=== PATIENT | female | born 2005 ===

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

== ENCOUNTER 2025-05-04 15:22 | Emergency (ER) | payer OTHER, SELFPAY ==
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
[2025-05-04 15:27] VITALS: BP 128/71; BP 129/58; PULSE 83; PULSE 89; RESP 18; TEMP 36.8; O2SAT 100; O2SAT 99; BMI 33.3
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
[2025-05-04 18:10] VITALS: BP 118/77; PULSE 78; RESP 18; TEMP 36.4; O2SAT 99
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
--- OUTSIDE RECORDS SUMMARY | 2025-05-04 18:18 | XMS_ITS | Clinical Summary ---
Author Organization [employer] Address [address] [facility] 7[address] [place] [address] Care Team Providers Care Guest Services Lead Name Role Phone Beena Chaudhary MD Primary Care Provider [phone] Allergies Active Allergy Reactions Criticality Noted Date Comments Sodium Hypochlorite 03/15/2021 Medications acetaminophen (Tylenol) 325 MG tablet TAKE 1 TABLET BY MOUTH FOUR TIMES A DAY NEEDED FOR PAIN 05/28/20 22 Active ibuprofen 200 MG tablet TAKE 2 TABLETS BY MOUTH 4 TIMES A DAY NEEDED FOR PAIN 05/22/20 22 Active ondansetron ODT (Zofran-ODT) 4 MG disintegrating tablet DISSOLVE 1 TABLET BY MOUTH EVERY 8 HOURS FOR 3 DAYS 04/24/20 22 Active amoxicillin (Amoxil) 500 MG capsule TAKE 1 CAPSULE BY MOUTH EVERY 8 HOURS UNTIL FINISHED 03/19/20 24 Active EPINEPHrine (Epipen) 0.3 MG/0.3ML injection syringe Use by autoinjection method as needed for allergic reaction. Repeat as needed 2 each 1 03/28/20 24 Active triamcinolone (Kenalog) 0.1 % creamIndications:E czema, unspecified type APPLY TO AFFECTED AREA TOPICALLY TWICE A DAY 60 g 3 02/03/20 25 Active Active Problems Problem Noted Date Diagnosed Date Anaphylaxis 03/26/2023 Assessment & Plan (04/01/2024 12:29 PM EDT): Needs to carry EpiPen with her and one at home New prescription sent Assessment & Plan (03/26/2023 1:58 PM EDT): To chlorine and to dogs Permission letter to self-carry and self-administer EpiPen for HS Well adult exam 03/26/2023 Assessment & Plan (03/26/2023 1:59 PM EDT): Anticipatory guidance given followup in one year for 18 year old [facility] Vitamin D deficiency 03/22/2022 Tic disorder 11/03/2013 Eczema 06/10/2012 Encounters Date Type Department Care Team Description 05/04/2025 Orders Only [facility] External Provider, [facility] from Last 3 Months Immunizations Immunization Administration Dates Next Due DTP 08/24/2006, 6,2005,06/28 HPV 9-Valent 05/01/2016,09/02/2015,06/22/2015 Hep A, ped/adol, 2 dose 11/22/2006,2006 Hep B, Adolescent or Pediatric 2005,2005,2005 Hib (HbOC) 08/24/2006, 6,2005,06/28 IPV 06/29/2009, 6,2005,06/28 Influenza injectable quadriv alent preservative free 05/25/2021,07/01/2020,08/29/2017,05/01,06/22/2015 Influenza, IIV3, injectable 06/09/2011 Influenza, Split (incl. tho fied surface antigen) 06/10/2012 Influenza, injectable, quadr ivalent, preservative free, pediatric 05/25/2014 Influenza, live, intranasal 06/16/2013,1 08/22/2008,06/10/2008,06/07 MMR 06/29/2009,2006 Meningococcal MCV4P ACYW-135 10/11/2021,08/29/19 18 Pneumococcal Conjugate PCV 7 08/24/2006, 2005,2005,06/28 Tdap 10/28/2018,06/29/2009 Varicella 06/29/2009,2006 Social History Tobacco Use Types Packs/Day Years Used Date Smoking Tobacco: Never Smokeless Tobacco: Never Tobacco Cessation:Counseling Given: Not Answered Alcohol Use Standard Drinks/Week Comments Never 0 [...] not to disclose 2021 10:18 AM EDT Last Filed Vital Signs Vital Sign Reading Time Taken Comments Blood Pressure 124/75 03/28/2024 10:40 AM EDT Pulse 74 03/28/2024 10:40 AM EDT Temperature 37.8 C (100 F) 03/28/2024 10:40 AM EDT Respiratory Rate 20 03/28/2024 10:4 0 AM EDT Oxygen Saturation 100% 03/28/2024 10: 40 AM EDT Inhaled Oxygen Concentration - - Weight 83.8 kg (184 lb 12.8 oz) 024 10:40 AM EDT Height 165.1 cm (5' 5 ) 03/28/2024 10:4 0 AM EDT Body Mass Index 30.75 03/28/2024 10:40 AM EDT Plan of Treatment Health Maintenance Due Date Last Done Comments Chlamydia and Gonorrhea Screening 2005 Disability Screening 2005 Alcohol/Substance Use Screening 2017 Family Planning (PISQ) 2020 Meningococcal B Vaccine (1 of 2 - Standard) 2021 Hepatitis C Screening 2023 Depression Screening 03/28/2025 03/28/2024, 03/28/20 24 SDOH Screening 03/28/2025 03/28/2024 Tobacco Screening 03/28/2025 03/28/2024 COVID-19 Vaccine ( season) 2025 08/05/2021, 01/27/2021, 01/06/2021 Influenza Vaccine (#1) 2025 , 07/01/2020, 08/29/2017, Additional history exists DTaP/Tdap/Td Vaccines (7 - Td or Tdap) 10/28/2028 10/28/2018, 06/29/2009, 08/24/2006, Additional history exists Zoster Vaccines (1 of 2) 2055 RSV Patients and Patients Aged 60 years or older (1 - 1-dose 75+ series) 2080 Hepatitis B Vaccines Completed 2005, 2005, 2005 HIB Vaccines Completed 08/24/2006, 09/29, 2005, Additional history exists Pneumococcal Vaccine: Pediatrics (0 to 5 Years) and At-Risk Patients (6 to 49) Years Aged Out 08/24/2006, 2005, 2005, Additional history exists No longer eligible based on patient's age to complete this topic Hepatitis A Vaccines Completed 11/22/2006, 04/25/20 06 IPV Vaccines Completed 06/29/2009, 09/29, 2005, Additional history exists HPV Vaccines Completed 05/01/2016, 02/0 10/2015, 06/22/2015 Meningococcal Vaccine Completed 10/11/2021, 018 HIV Screening Completed 03/21/2022 RSV under 20 months Aged Out No longe r eligible based on patient's age to complete this topic Rotavirus Vaccines Aged Out No longer eligible based on patient's age to complete this topic Procedures Procedure Name Priority Date/Time Associated Diagnosis Comments CT CERVICAL SPINE WO CONTRAST Routine 05/04/2025 6:[address] HEAD WO CONTRAST Routine 05/04/2025 5 :48 PM EDT HIV 1/2 ANTIGEN/ANTIBODY, FOURTH GENERATION W/RFL Routine 03/21/2022 3:23 PM EDT from Last 3 Months or Most Recently Relevant to Health Maintenance Results * CT Cervical Spine w/o Contrast (05/04/2025 6:12 PM EDT) Anatomical Region Laterality Modality Spine, C-spine Computed Tomogra phy 05/04/2025 6:12 PM EDT Narrative 05/04/2025 6:13 PM EDT [place] [address] CT Scan Report Signed Patient: Jenny Nolen MR#: [id number] : 2005 Acct:[id number] Age/Sex: 20 / F ADM Date: 05/04/25 Loc: .ED Attending Dr: Ordering Physician: Keke Roldan Date of Service: 05/04/25 Procedure(s): CT cervical spine wo IV con Accession Number(s): [id number] cc: [facility]; Keke Roldan Report Number: [id number]: Total DLP = 0.00 mGy-cm Reason for [...] in OV> 05/04/251812 DD/ 11 TD/TT: 05/04/251811 Waste Oil Pumper: Procedure Note Rahelter, Image - 05/04/[address] [address] [address] Scan Report Signed Patient: Jenny Nolen AMR#: [id number] : 2005Acct:[id number] Age/Sex: 20 / FADM Date: 05/04/25 Loc: HO.ED Attending Dr: Ordering Physician: Keke Roldan Date of Service: 05/04/25 Procedure(s): CT cervical spine wo IV con Accession Number(s): [id number] cc: [facility]; Keke Roldan Report Number: [id number]: Total DLP = 0.00 mGy-cm Reason for [...] in OV> 05/04/251812 DD/ 11 TD/TT: 05/04/251811 Waste Oil Pumper: us [facility] External Provider IMG CT PROCEDURES Final Result * CT Head w/o Contrast (05/04/2025 5:48 PM EDT) Anatomical Region Laterality Modality Head, Neck Computed Tomogra phy 05/04/2025 5:48 PM EDT Narrative 05/04/2025 5:49 PM EDT [address] [address] [address] Scan Report Signed Patient: Jenny Nolen MR#: [id number] : 2005 Acct:[id number] Age/Sex: 20 / F ADM Date: 05/04/25 Loc: HO.ED Attending Dr: Ordering Physician: Keke Roldan Date of Service: 05/04/25 Procedure(s): CT head/brain wo IV con Accession Number(s): [id number] cc: [facility]; Keke Roldan Report Number: [id number]: Total DLP = 0.00 mGy-cm Reason for [...] in OV> 05/04/251747 DD/ 47 TD/TT: 05/04/251747 Waste Oil Pumper: Procedure Note Donotrociointerpreter, Image - 05/04/[address] [place] [address] [address] Scan Report Signed Patient: Jenny Nolen AMR#: [id number] : 2005Acct:[id number] Age/Sex: 20 / FADM Date: 05/04/25 Loc: HO.ED Attending Dr: Ordering Physician: Keke Roldan Date of Service: 05/04/25 Procedure(s): CT head/brain wo IV con Accession Number(s): [id number] cc: [facility]; Keke Roldan Report Number: [id number]: Total DLP = 0.00 mGy-cm Reason for [...] in OV> 05/04/251747 DD/ 47 TD/TT: 05/04/251747 Waste Oil Pumper: [facility] External Provider IMG CT PROCEDURES Final Result * HIV 1/2 ANTIGEN/ANTIBODY,FOURTH GENERATION W/RFL (03/21/2022 3:23 PM EDT) Pathologist [facility] HIV-1/2 ANTIGEN AND ANTIBODIES, 4TH GENERATION W/ REFLEX NON-REACT ELI NON-REACT ELI [facility] Comment: HIV-1 antigen and HIV-1/HIV-2 antibodies were not detected. There is no laboratory evidence of HIV infection. PLEASE NOTE: This information has been disclosed to you from records whose confidentiality may be protected by state law. If your state requires such protection, then the state law prohibits you from making any further disclosure of the information without the specific written consent of the person to whom it pertains, or as otherwise permitted by law. A general authorization for the release of medical or other information is NOT sufficient for this purpose. For additional information please refer to http://education.PublicVine.RadioScape/faq/KUV783 (This link is being provided for informational/ educational purposes only.) The performance of this assay has not been clinically validated in patients less than 2 years old. 03/21/2022 3:23 PM EDT Jocy Milligan [employer] LAB BLOOD ORDERABLES Final Res ult [facility] [address] from Last 3 Months or Most Recently Relevant to Health Maintenance Insurance [employer] C3 [employer] Care Teams Guest Services Lead Relationship Specialty Start Date End Date Beena Chaudhary MD [address] [place] [id number] PCP - General Family Medicine 03/24/22
[2025-05-04 18:29] VITALS: BP 118/77; PULSE 78; RESP 18; TEMP 36.4; O2SAT 99
== END 2025-05-04 18:29 | disposition home or self-care (01) ==
PROVIDERS: Emergency Provider Emergency Medicine
DX: S13.4XXA Sprain of ligaments of cervical spine, initial encounter (principal); S16.1XXA Strain of muscle, fascia and tendon at neck level, initial encounter; V43.62XA Car passenger injured in collision with other type car in traffic accident, initial encounter; Y93.9 Activity, unspecified; Y92.410 Unspecified street and highway as the place of occurrence of the external cause; Y99.9 Unspecified external cause status; M54.2 Cervicalgia; R51.9 Headache, unspecified
CPT/HCPCS: 70450; 72125; 99284

== ENCOUNTER → 2025-05-04 15:55 | Outpatient (BNV) | payer MEDICAID, SELFPAY | PROVIDERS: Emergency Provider Emergency Medicine; Visit Provider Specialist | DX: M54.2 Cervicalgia (principal); S09.90XA Unspecified injury of head, initial encounter | CPT/HCPCS: 70450; 72125 ==